=== PATIENT | female | born 1970 | race African-American/Black ===

== ENCOUNTER 2024-01-17 07:45 | Day surgery (SDC) | payer OTHER, SELFPAY ==
[2024-01-17] VITALS (9 sets, daily range): BP systolic 159–209; BP diastolic 91–99; PULSE 67–88; RESP 16–22; TEMP 36.3–36.8; O2SAT 97–100; BMI 36.0
[2024-01-17] MEDS: Lactated Ringers 1,000 ML 125 ML IV (08:31)
--- NOTE | 2024-01-17 08:31 | ANES.PREOP_ITS ---
General Info Date of Service Date Performed: 01/17/24 Height: 5 ft 2 in Weight: 89.414 kg Body Mass Index (BMI): 36.0 Surgical Procedure: Operation Date: 01/17/24 08:40 Proposed Procedure Side Surgeon p Dilation & Curettage with Hysteroscopy Daksha Scherer DO Meds Allergies and Home Medications Allergies Allergy/AdvReac Type Severity Reaction Status Date / Time No Known Allergies Allergy Verified 01/17/24 07:53 Home Medication ?Medication ?Instructions ?Recorded amlodipine 10 mg tablet 10 mg PO DAILY 12/15/23 Current Visit Medications: Current Medications Generic Name Dose Route Start Last Admin Trade Name Freq PRN Reason Stop Dose Admin Ringer's Solution 1,000 mls @ 125 mls/hr 01/17/24 06:00 IV 01/17/24 23:59 INFUSION MIRACLE IV Miscellaneous Supplies 1 each 01/17/24 06:00 Iv Access IV 01/17/24 23:59 DIRECTED MIRACLE Sodium Chloride 0 ml 01/17/24 06:00 Normal Saline Flush 10 Ml Syr IV 01/17/24 23:59 PRN PRN Sodium Chloride 0 ml 01/17/24 06:00 Normal Saline 10 Ml Vial IJ 01/17/24 23:59 DIRECTED PRN Sterile Water 0 ml 01/17/24 06:00 Water,Injection,Sterile 10 Ml Vial IJ 01/17/24 23:59 DIRECTED PRN PFSH Active Problems Active Problems: Problem Status Onset Code Thickened endometrium Acute R93.89 History of breast cancer Acute Z85.3 Postmenopausal bleeding Acute N95.0 Medical History Medical History Hypertension Tobacco Smoking/Tobacco Use Status: Never Second hand exposure: No Alcohol Alcohol Intake: never Substance Use Substance use: Never Substance use type: does not use Prental History History 3 Para 3 Hx # Term Pregnancies Multiple births Hx # Pregnancies Ectopic pregnancies AB induced Hx Number of Living Children AB spontaneous Past Pregnancies Del. Date GA/Weeks # Preg Succ Route Wgt Sex Labor Lgth Anesth esia Location Prov Complic 01/16/94 No Yes vaginal 3316.894 g Female 11/23/01 No Yes vaginal 3628.739 g Female 05/07/06 Yes vaginal 3827.186 g Male Vital Signs and Lab Results Vital Signs Most Recent Vital Signs in EMR: Most Recent Vital Signs Temp Pulse Resp BP Pulse Ox 36.8 C 84 16 180/99 H 100 01/17/24 07:56 01/17/24 07:56 01/17/24 07:56 01/17/24 07:56 01/17/24 07:56 Lab Results Blood Type / Crossmatch: No Data to Display Complete Blood Count: No Data to Display Complete Metabolic Panel: No Data to Display Liver Function Panel: No Data to Display Coagulation Panel: No Data to Display Cardiac Panel: No Data to Display Arterial Blood Gas: No Data to Display Venous Blood Gas: No Data to Display Pancreas Panel: No Data to Display Thyroid Panel: No Data to Display Infectious Disease: No Data to Display Blood Cultures: No Data to Display Toxicology Panel: No Data to Display Anesthesia Assessment and Plan Anesthesia History Personal History: No History of Anesthesia Complications Family History: No Family History of Anesthesia Complications Exercise Tolerance Exercise Tolerance: Metabolic Equivalents>4 Pertinent Negatives Pertinent Negatives: No Symptoms of GERD Cardiac & Pulmonary Exam Cardiac Exam: Normal S1/S2 Heart Sounds Pulmonary Exam: Clear Bilateral Breath Sounds Implantable Cardiac Device Does patient have a Pacemaker or an ICD?: No Airway Exam Known Difficult Airway: No Mallampati Class: 3 Mouth Opening: Normal (> 3cm) Thyromental Distance: Greater than 3 cm Neck Range of Motion: Full ROM Neck Circumference: Normal Teeth Condition: Normal Dentition ASA Classification ASA Score: ASA 2 Emergency Case?: No NPO Status NPO Status: NPO Clears >2 hours, Solids >8 hours Anesthesia Plan Resuscitation Status: Full Code Anesthesia Technique: General Anesthesia Airway Planned: LMA Monitors Used: Standard Monitors
[2024-01-17 08:37] LABS: Absolute Basophil Count 0.03 10^3/uL (0.0-0.2); Absolute Eosinophil Count 0.18 10^3/uL (0.0-0.7); Absolute Lymphocyte Count 1.75 10^3/uL (1.2-3.4); Absolute Monocyte Count 0.35 10^3/uL (0.1-0.8); Absolute Neutrophil Count 2.87 10^3/uL (1.2-6.7); Basophils % 0.6 %; Eosinophils % 3.5 %; Lymphocytes % 33.8 %; MCH 28.8 pg (27.0-33.0); MCHC 32.5 % (32.0-36.0); MCV 89 fL (80-95); Monocytes % 6.8 %; Neutrophils % 55.3 %; Platelet Count 212 10^3/uL (130-400); RBC 4.51 10^6/uL (3.93-5.22); RDW 12.9 % (11.7-14.6); RDW-SD 42.3 fL; WBC 5.18 10^3/uL (4.4-10.8)
--- NOTE | 2024-01-17 09:15 | PAPFT_PTH ---
PATIENT: Lashae Palacio LOC: [facility] U#:[id number] AGE/SX: 53/F ROOM: RE01/17/[address]: Daksha Scherer DO : 1970 BED: DIS: 01/17/2024 SPEC #: [id number] RECD: 01/17/24 13:32 STATUS: FLY REQ #: [id number] BELL: 01/17/24 09:[address]: Daksha Scherer DEPT: [facility] Cytology RECD BY: Riana Smith ENTERED: 01/17/24 13:32 SP TYPE: PAPFT OT DR: Sushila Local Tissues: 1 - CX/ENDOCX FOR PAP SMEARS Procedures: PAP THIN PREP/U[facility] Screening HPV DNA PROBE Comments: [id number] (HPV 16 & 18/45)
--- NOTE | 2024-01-17 09:23 | ENDOMET_PTH ---
PATIENT: Lashae Palacio LOC: [facility] U#:[id number] AGE/SX: 53/F ROOM: RE01/17/[address]: Daksha Scherer DO : 1970 BED: DIS: 01/17/2024 SPEC #: [id number] RECD: 01/17/24 13:13 STATUS: FLY REQ #: [id number] BELL: 01/17/24 09:[address]: Daksha Scherer DEPT: Surgical Specimen RECD BY: Riana Smith ENTERED: 01/17/24 13:16 SP TYPE: Endomet OTHR DR: No Local Tissues: 1 - ENDOMETRIUM BX/CURRETTE 2 - ENDOCERVICAL BX/CURRETTE 3 - ENDOMETRIUM BX/CURRETTE Procedures: GROSS AND MICRO LEVEL 4 Comments: [id number]
--- NOTE | 2024-01-17 09:39 | ROE_ITS ---
Date of service: 01/17/24 Time of Service: 09:39 Operative Note Operative Note DATE OF PROCEDURE: 01/17/24 PRE-OP DIAGNOSIS: Postmenopausal bleeding, thickened endometrium POST-OP DIAGNOSIS: same Endometrial polyp PROCEDURE: Hysteroscopy, dilation and curettage, endometrial polypectomy SURGEON: Daksha Scherer ANESTHESIA TYPE: General LMA/ETT Refer to Anesthesia Record ESTIMATED BLOOD LOSS: 5 PATHOLOGY: other (1. Endometrial polyp 2. Endocervical curettage 3. Endometrial curettage) COMPLICATIONS: None Patient was transported to: PACU Indications: Postmenopausal bleeding, thickened endometrium Findings: Normal-appearing tubal ostia bilaterally. Smooth regular endometrium. Small, 2 to 3 mm endometrial polyp, removed. Procedure Description: After full informed consent was obtained, patient was taken the operating suite with an IV running. She had general anesthesia administered via LMA. A timeout was held. A Pap smear of the cervix and endocervix was obtained. At this point she was placed in the modified dorsolithotomy position in [facility] stirrups and prepped and draped in the usual sterile fashion. Exam under anesthesia revealed a uterus that was midline and mobile. Pneumatic compression stockings were placed for DVT prophylaxis. There was no need for antibiotic prophylaxis. A single-tooth tenaculum was used to grasp the anterior lip of the cervix and cervical os dilated the point that a 5 mm hysteroscope could be passed without difficulty. With instillation of normal saline, maximum of 75 cc, the entire endometrial cavity was inspected. The cavity itself was smooth and regular. Tubal ostia were visualized bilaterally. There is noted to be a small, 2 to 3 mm endometrial polyp which was removed with a Erik stone polyp forcep. At this point, fractional dilation and curettage was performed with endocervical curettage for scant tissue, followed by endometrial curettage also for scant tissue. Single-tooth tenaculum was then removed from the anterior lip of the cervix and puncture sites were noted to be hemostatic. Speculum was removed and the patient was returned to the dorsal supine position and awoke from anesthesia without difficulty. She was taken the recovery room in stable condition. Complications: None apparent Fluids: Crystalloid per anesthesia Pathology: Pap smear followed by 1. Endometrial polyp 2. Endocervical curettage 3. Endometrial curettage. Findings: Endometrial cavity as described above.
--- NOTE | 2024-01-17 10:03 | W.ANESPOSTOP ---
Postoperative Evaluation Date, Time and Location Date Performed: 01/17/24 Time Performed: 10:03 Patient Location: Day Surgery Unit Vital Signs Most Recent Imported Vital Signs: Most Recent Vital Signs Temp Pulse Resp BP Pulse Ox 36.6 C 78 19 173/93 H 100 01/17/24 09:51 01/17/24 09:50 01/17/24 09:51 01/17/24 09:50 01/17/24 09:51 Pain Score Most Recent Pain Score: Most Recent Pain Score Pain Level 1 01/17/24 09:51 Assessment Mental Status: Awake (Alert & Oriented to Patient Baseline) Airway and Respiratory Function: Patent airway with normal (patient baseline) respiratory exam Cardiovascular Function: Hemodynamically Stable Hydration Status: Adequately Hydrated Nausea & Vomiting: No Nausea or Vomiting Pain: Pt. Denies Any Pain Peripheral Nerve Block: Patient did not receive a nerve block
== END 2024-01-17 10:49 | disposition home or self-care (01) ==
PROVIDERS: Visit Provider Obstetrics & Gynecology
PROC: 0UDB8ZZ Extraction of Endometrium, Via Natural or Artificial Opening Endoscopic (ICD-10-PCS; CPT 58558; principal; 2024-01-17 08:30)
DX: N95.0 Postmenopausal bleeding (principal); R93.89 Abnormal findings on diagnostic imaging of other specified body structures; N84.0 Polyp of corpus uteri
CPT/HCPCS: 58558; 36415; 86850; 86900; 86901; 88142; 88305; 85025; 87624; J0131; J1100; J1885; J2001; J2405; J2704